=== PATIENT | male | born 1950 | race Caucasian/White ===

== ENCOUNTER 2021-03-26 09:02 | Inpatient (IN) ==
[2021-03-26] MEDS ORDERED: Isovue-370 500 ML BOTTLE IVP ONE (10:06)
[2021-03-26 10:29] LABS: Hematocrit 45.3 % (37.5-50.1); Mean Corpuscular HGB Conc 33.1 g/dL (31.6-35.5); Mean Corpuscular Hemoglobin 30.1 pg (28.0-33.3); Mean Corpuscular Volume 90.8 fL (83.0-100.0); Mean Platelet Volume 10.4 fL (9.4-12.4); Platelet Count 190 K/mcL (140-400); Red Blood Count 4.99 M/mcL (4.19-5.50); White Blood Count 9.3 K/mcL (4.3-11.1)
[2021-03-26 10:37] LABS: INR 1.1; Prothrombin Time 12.7 Seconds (9.4-12.1)
[2021-03-26 10:40] LABS: Activated Partial Thrombo Time 33.5 Seconds (26.0-36.0)
[2021-03-26 10:52] LABS: Alanine Aminotransferase 18 Units/L (7-52); Albumin 4.3 g/dL (3.5-5.7); Alkaline Phosphatase 70 Units/L (34-104); Aspartate Amino Transferase 20 Units/L (13-39); BUN/Creatinine Ratio 8 (6-26); Bilirubin,Direct 0.2 mg/dL (0.0-0.2); Bilirubin,Indirect 0.7 mg/dL (0.0-1.0); Bilirubin,Total 0.9 mg/dL (0.3-1.0); Blood Urea Nitrogen 7 mg/dL (8-23); Calcium 9.3 mg/dL (8.6-10.3); Carbon Dioxide 23 mEq/L (23-29); Chloride 105 mEq/L (98-107); Globulin 2.2 g/dL (2.4-3.5); Glucose 140 mg/dL (70-105); Magnesium 1.5 mg/dL (1.6-2.6); Osmolality,Calculated 288 (280-300); Potassium 3.6 mEq/L (3.5-5.1); Sodium 139 mEq/L (136-145); Total Protein 6.5 g/dL (6.4-8.9); Troponin I < 0.03 ng/mL (< 0.04); eGFR For African Americans > 60 (> 60); eGFR For Non-African Americans > 60 (> 60)
[2021-03-26 12:17] LABS: Amorphous Sediment,Urine Few per hpf (None-Few); Bilirubin,Urine Negative (Negative); Blood,Urine Negative (Negative); Clarity,Urine Turbid (Clear); Color,Urine Yellow (Yellow); Glucose,Urine (UA) Normal (Normal); Ketones,Urine Negative (Negative); Leukocyte Esterase,Urine Negative (Negative); Mucus,Urine Few per lpf (None-Few); Nitrite,Urine Negative (Negative); PH,Urine 7.5 pH Units (5.0-8.0); Protein,Urine Trace mg/dL (Neg-Trace); RBC,Urine 0-3 per hpf (0-3); Specific Gravity,Urine 1.026 (1.010-1.025); Squamous Epithelial Cell,Urine Few per hpf (None-Few)
[2021-03-26] MEDS ORDERED: Aspirin 325 MG TABLET PO ONE (13:11)
[2021-03-26] MEDS ORDERED: Melatonin 3 MG TABLET PO PRN (13:36)
[2021-03-26] MEDS ORDERED: Naloxone 0.4 MG/ML INJ IVP PRN (13:36)
[2021-03-26] MEDS ORDERED: Mag Hydrox/Al Hydrox/Simeth 30 ML UDC PO PRN (13:36)
[2021-03-26] MEDS ORDERED: Ondansetron ODT 4 MG TAB.RAPDIS SL PRN (13:36)
[2021-03-26] MEDS ORDERED: Perflutren Lipid Microsphere 1.3 ML in 0.9 % Sodium Chloride 8.7 ML IVP PRN (13:44)
[2021-03-26] MEDS ORDERED: *HR* LORazepam 1 MG TABLET PO ONE (15:42)
[2021-03-27 01:27] LABS: Hematocrit 46.3 % (37.5-50.1); Mean Corpuscular HGB Conc 32.4 g/dL (31.6-35.5); Mean Corpuscular Hemoglobin 29.7 pg (28.0-33.3); Mean Corpuscular Volume 91.7 fL (83.0-100.0); Mean Platelet Volume 10.6 fL (9.4-12.4); Platelet Count 185 K/mcL (140-400); Red Blood Count 5.05 M/mcL (4.19-5.50); White Blood Count 5.5 K/mcL (4.3-11.1)
[2021-03-27 01:44] LABS: BUN/Creatinine Ratio 7 (6-26); Blood Urea Nitrogen 7 mg/dL (8-23); Calcium 9.2 mg/dL (8.6-10.3); Carbon Dioxide 23 mEq/L (23-29); Chloride 106 mEq/L (98-107); Chol/HDL Ratio 3.2 (0-4.9); Cholesterol 86 mg/dL (< 200); Glucose 117 mg/dL (70-105); HDL Cholesterol 27 mg/dL (40-59); LDL Cholesterol,Calculated 33 mg/dL (< 100); Osmolality,Calculated 287 (280-300); Potassium 3.6 mEq/L (3.5-5.1); Sodium 139 mEq/L (136-145); Triglycerides 129 mg/dL (< 150); eGFR For African Americans > 60 (> 60); eGFR For Non-African Americans > 60 (> 60)
[2021-03-27] MEDS: Aspirin 325 MG TABLET PO SCH (08:14)
[2021-03-27] MEDS ORDERED: *HR* LORazepam 0.5 MG TABLET PO PRN (13:27)
[2021-03-28] MEDS: Aspirin 325 MG TABLET PO SCH (08:07)
[2021-03-28 10:37] LABS: Estimated Average Glucose 151 mg/dl; Hemoglobin A1C 6.9 %
[2021-03-28] MEDS ORDERED: *HR* LORazepam 2 MG/ML VIAL IVP ONE ×2 (12:31→17:00)
[2021-03-28] MEDS ORDERED: Cyanocobalamin (B-12) 1,000 MCG/ML VIAL IM ONE (12:32)
[2021-03-28] MEDS ORDERED: Dextrose Gel 15 GM/37.5 ML TUBE PO PRN ×2 (16:07)
[2021-03-28] MEDS ORDERED: *HR* Dextrose 50 % in Water (Syg) 50 ML SYRINGE IVP PRN (16:07)
[2021-03-28] MEDS ORDERED: D5% in Water 1,000 ML IVC PRN (16:07)
[2021-03-28] MEDS: Insulin LISPRO 300 UNITS/3 ML VIAL SUBQ SCH (17:33)
[2021-03-29 05:34] LABS: BUN/Creatinine Ratio 10 (6-26); Blood Urea Nitrogen 8 mg/dL (8-23); Carbon Dioxide 21 mEq/L (23-29); Chloride 106 mEq/L (98-107); Glucose 147 mg/dL (70-105); Osmolality,Calculated 283 (280-300); Sodium 136 mEq/L (136-145); eGFR For African Americans > 60 (> 60); eGFR For Non-African Americans > 60 (> 60)
[2021-03-29] MEDS: Insulin LISPRO 300 UNITS/3 ML VIAL SUBQ SCH (08:50)
[2021-03-29] MEDS: Aspirin 325 MG TABLET PO SCH (09:36)
[2021-03-29 11:44] VITALS: BP 144/74; PULSE 74; TEMP 98; O2SAT 94
[2021-03-29] MEDS ORDERED: FLU Vac QV 21-22 (6Month+)/PF 0.5 ML SYRINGE IM ONE (12:07)
== END 2021-03-29 13:37 | disposition home or self-care (01) | DRG 92 ==
LOC: EMEROOARM 09:02 → 3ANU 09:02 → SUATTDRO 14:28 → 3ANU 15:22 → SUATTDRO 03-27 13:40
PROVIDERS: ADMIT Family Medicine; ATTEND Student in an Organized Health Care Education/Training Program

== ENCOUNTER 2022-02-04 17:17 | Observation (INO) ==
[2022-02-04] MEDS ORDERED: 0.9 % Sodium Chloride 1,000 ML IVC ONE (17:32)
[2022-02-04] MEDS ORDERED: Iopamidol - 370 500 ML MLS IVP ONE (17:34)
[2022-02-04 17:58] LABS: Basophils # 0.1 K/mcL (0.0-0.2); Basophils % 0.8 %; Eosinophils # 0.2 K/mcL (0.0-0.6); Eosinophils % 2.9 %; Hematocrit 46.2 % (37.5-50.1); Hemoglobin 15.8 g/dL (12.9-16.9); Immature Granulocytes % 0.5 % (0-4); Lymphocytes # 2.3 K/mcL (0.6-4.6); Lymphocytes % 28.2 %; Mean Corpuscular HGB Conc 34.2 g/dL (31.6-35.5); Mean Corpuscular Hemoglobin 29.9 pg (28.0-33.3); Mean Corpuscular Volume 87.5 fL (83.0-100.0); Mean Platelet Volume 10.1 fL (9.4-12.4); Monocytes # 0.6 K/mcL (0.0-1.3); Monocytes % 7.6 %; Platelet Count 298 K/mcL (140-400); Red Blood Count 5.28 M/mcL (4.19-5.50); Red Cell Distribution Width 13.1 % (11.5-14.5)
[2022-02-04] MEDS ORDERED: Haloperidol Lactate 5 MG/ML VIAL IVP ONE (17:58)
[2022-02-04 18:05] LABS: INR 1.2; Prothrombin Time 13.2 Seconds (9.4-12.1)
[2022-02-04 18:07] LABS: White Blood Count 8.3 K/mcL (4.3-11.1)
[2022-02-04 18:22] LABS: ABG Base Excess -1 mEq/L (-2 to 3); ABG HCO3 24 mEq/L (21-27); ABG Oxygen Saturation 98 % (95-98); ABG PCO2 39 mmHg (35-45); ABG PH 7.39 pH Units (7.32-7.45); ABG PO2 103 mmHg (85-104); ABG TCO2 25 mEq/L (20-26)
[2022-02-04] MEDS ORDERED: *HR* LORazepam 2 MG/ML VIAL IVP ONE (18:23)
[2022-02-04 18:30] LABS: Influenza A PCR Negative (Negative); Influenza B PCR Negative (Negative); Resp. Syncytial Virus PCR Negative (Negative); SARS-CoV-2 by PCR (In House) Negative (Negative)
[2022-02-04 18:37] LABS: Alanine Aminotransferase 55 Units/L (7-52); Albumin 4.3 g/dL (3.5-5.7); Albumin/Globulin Ratio 1.4 (1.1-2.2); Alkaline Phosphatase 155 Units/L (34-104); Aspartate Amino Transferase 53 Units/L (13-39); BUN/Creatinine Ratio 10 (6-26); Bilirubin,Direct 0.1 mg/dL (0.0-0.2); Bilirubin,Indirect 0.9 mg/dL (0.0-1.0); Blood Urea Nitrogen 8 mg/dL (8-23); Calcium 9.5 mg/dL (8.6-10.3); Carbon Dioxide 22 mEq/L (23-29); Chloride 102 mEq/L (98-107); Glucose 204 mg/dL (70-105); Osmolality,Calculated 278 (280-300); Potassium 5.4 mEq/L (3.5-5.1); Sodium 132 mEq/L (136-145); Total Protein 7.3 g/dL (6.4-8.9); Troponin I < 0.03 ng/mL (< 0.04)
[2022-02-04] MEDS ORDERED: Azithromycin 500 MG in 0.9 % Sodium Chloride 250 ML IVPB ONE (20:15)
[2022-02-04] MEDS ORDERED: cefTRIAXone 2,000 MG in 0.9 % Sodium Chloride Mini Bag 100 ML IVPB ONE ×2 (20:15→23:00)
[2022-02-04] MEDS ORDERED: Ondansetron 4 MG/2 ML VIAL IVP PRN (20:38)
[2022-02-04] MEDS ORDERED: Naloxone 0.4 MG/ML INJ IVP PRN (20:38)
[2022-02-04] MEDS ORDERED: Acetaminophen 325 MG TABLET PO PRN (20:38)
[2022-02-04 21:11] LABS: Bilirubin,Urine Negative (Negative); Blood,Urine Negative (Negative); Clarity,Urine Clear (Clear); Color,Urine Light-Yellow (Yellow); Glucose,Urine (UA) Normal (Normal); Ketones,Urine Negative (Negative); Leukocyte Esterase,Urine Negative (Negative); Nitrite,Urine Negative (Negative); PH,Urine 6.5 pH Units (5.0-8.0); Protein,Urine Negative (Neg-Trace); Specific Gravity,Urine > 1.030 (1.010-1.025)
[2022-02-04] MEDS ORDERED: Ipratropium/Albuterol Neb 3 ML IH PRN (21:57)
[2022-02-04] MEDS ORDERED: *HR* Dextrose 50 % in Water (Syg) 50 ML SYRINGE IVP PRN (22:02)
[2022-02-04] MEDS ORDERED: Dextrose Gel 15 GM/37.5 ML TUBE PO PRN ×2 (22:02)
[2022-02-04] MEDS ORDERED: D5% in Water 1,000 ML IVC PRN (22:02)
[2022-02-04 23:36] LABS: Amphetamine Screen,Urine Negative ng/mL (Cutoff=1000); Barbiturate Screen,Urine Negative ng/mL (Cutoff=200); Benzodiazepines Screen,Urine Negative ng/mL (Cutoff=200); Cannabinoid Screen,Urine Negative ng/mL (Cutoff = 50); Cocaine Screen,Urine Negative ng/mL (Cutoff= 300); Opiate Screen,Urine Negative ng/mL (Cutoff=300); Phencyclidine Screen,Urine Negative ng/mL (Cutoff=25)
[2022-02-04 23:40] LABS: Vitamin B12 > 1500 pg/mL (250-1100)
[2022-02-05 00:05] LABS: Procalcitonin 0.04 ng/mL (0.00-0.15)
[2022-02-05] MEDS ORDERED: 0.9 % Sodium Chloride 500 ML IVC ONE (00:30)
[2022-02-05] MEDS: Aspirin Enteric Coated 325 MG Tablet PO SCH ×2 (00:51→10:20)
[2022-02-05] MEDS: Insulin LISPRO 300 UNITS/3 ML VIAL SUBQ SCH ×4 (01:47→18:27)
[2022-02-05 06:29] LABS: Hematocrit 42.5 % (37.5-50.1); Hemoglobin 14.4 g/dL (12.9-16.9); Mean Corpuscular HGB Conc 33.9 g/dL (31.6-35.5); Mean Corpuscular Hemoglobin 30.2 pg (28.0-33.3); Mean Corpuscular Volume 89.1 fL (83.0-100.0); Mean Platelet Volume 9.9 fL (9.4-12.4); Platelet Count 264 K/mcL (140-400); Red Blood Count 4.77 M/mcL (4.19-5.50); Red Cell Distribution Width 12.9 % (11.5-14.5); White Blood Count 7.6 K/mcL (4.3-11.1)
[2022-02-05 06:47] LABS: Alanine Aminotransferase 40 Units/L (7-52); Albumin 3.9 g/dL (3.5-5.7); Albumin/Globulin Ratio 1.6 (1.1-2.2); Alkaline Phosphatase 136 Units/L (34-104); Aspartate Amino Transferase 25 Units/L (13-39); BUN/Creatinine Ratio 8 (6-26); Blood Urea Nitrogen 6 mg/dL (8-23); Calcium 9.1 mg/dL (8.6-10.3); Carbon Dioxide 25 mEq/L (23-29); Chloride 104 mEq/L (98-107); Chol/HDL Ratio 4.6 (0-4.9); Cholesterol 114 mg/dL (< 200); Globulin 2.4 g/dL (2.4-3.5); Glucose 161 mg/dL (70-105); HDL Cholesterol 25 mg/dL (40-59); LDL Cholesterol,Calculated 60 mg/dL (< 100); Osmolality,Calculated 283 (280-300); Potassium 3.4 mEq/L (3.5-5.1); Sodium 136 mEq/L (136-145); Total Protein 6.3 g/dL (6.4-8.9); Triglycerides 143 mg/dL (< 150); Troponin I < 0.03 ng/mL (< 0.04)
[2022-02-05] MEDS: Azithromycin 500 MG in 0.9 % Sodium Chloride 250 ML IVPB SCH (10:20)
[2022-02-05 10:40] LABS: Estimated Average Glucose 177 mg/dl; Hemoglobin A1C 7.8 %
[2022-02-05] MEDS ORDERED: *HR* OxyCODONE Immed Rel 5 MG TABLET PO PRN (13:17)
[2022-02-05] MEDS: *HR* HYDROcodone/Acet 5/325 mg TABLET PO PRN ×2 (14:54→20:59)
[2022-02-05] MEDS: Gabapentin 300 MG CAPSULE PO SCH ×2 (14:55→20:59)
[2022-02-05] MEDS ORDERED: cefTRIAXone 1,000 MG in 0.9 % Sodium Chloride Mini Bag 100 ML IVPB SCH (21:00)
[2022-02-06 03:12] LABS: Basophils # 0.1 K/mcL (0.0-0.2); Basophils % 0.8 %; Eosinophils # 0.3 K/mcL (0.0-0.6); Eosinophils % 4.1 %; Hematocrit 41.6 % (37.5-50.1); Immature Granulocytes % 0.5 % (0-4); Lymphocytes % 39.4 %; Mean Corpuscular HGB Conc 33.7 g/dL (31.6-35.5); Mean Corpuscular Hemoglobin 29.9 pg (28.0-33.3); Mean Corpuscular Volume 88.9 fL (83.0-100.0); Mean Platelet Volume 9.9 fL (9.4-12.4); Monocytes # 0.8 K/mcL (0.0-1.3); Monocytes % 11.1 %; Neutrophils # 3.3 K/mcL (1.6-8.9); Platelet Count 231 K/mcL (140-400); Red Blood Count 4.68 M/mcL (4.19-5.50); Red Cell Distribution Width 13.2 % (11.5-14.5); Segmented Neutrophils % 44.1 %; White Blood Count 7.6 K/mcL (4.3-11.1)
[2022-02-06 03:31] LABS: BUN/Creatinine Ratio 13 (6-26); Blood Urea Nitrogen 9 mg/dL (8-23); Calcium 8.8 mg/dL (8.6-10.3); Carbon Dioxide 24 mEq/L (23-29); Chloride 106 mEq/L (98-107); Glucose 180 mg/dL (70-105); Osmolality,Calculated 287 (280-300); Potassium 3.5 mEq/L (3.5-5.1); Sodium 137 mEq/L (136-145)
[2022-02-06] MEDS: Azithromycin 500 MG in 0.9 % Sodium Chloride 250 ML IVPB SCH (08:37)
[2022-02-06] MEDS: Aspirin Enteric Coated 325 MG Tablet PO SCH (08:38)
[2022-02-06] MEDS: Gabapentin 300 MG CAPSULE PO SCH (08:38)
[2022-02-06] MEDS: Insulin LISPRO 300 UNITS/3 ML VIAL SUBQ SCH ×2 (08:38→12:23)
[2022-02-06] MEDS ORDERED: *HR* LORazepam 2 MG/ML VIAL IVP ONE (09:34)
[2022-02-06 11:27] VITALS: BP 146/84; PULSE 81; TEMP 97.4; O2SAT 98
[2022-02-06] MEDS ORDERED: Topiramate 25 MG TABLET PO SCH (11:45)
== END 2022-02-06 14:13 | disposition home or self-care (01) ==
LOC: EMEROOARM 17:17 → 3ANU 17:17 → SUATTDRO 20:52 → 3ANU 21:01
PROVIDERS: ADMIT Internal Medicine; ATTEND Internal Medicine